=== PATIENT | female | born 1945 | race Caucasian/White ===

== ENCOUNTER → 2024-09-16 09:23 | Outpatient (REF) | payer OTHER, SELFPAY | LOC: HWWDC 09:23 | PROVIDERS: ATTENDING PHYSICIAN Internal Medicine Geriatric Medicine | DX: Z12.31 Encounter for screening mammogram for malignant neoplasm of breast (principal) | CPT/HCPCS: 77063; 77067 ==

== ENCOUNTER → 2024-10-14 10:29 | Outpatient (REF) | payer OTHER, SELFPAY | LOC: HWRAD 10:29 | PROVIDERS: ATTENDING PHYSICIAN Internal Medicine Endocrinology, Diabetes & Metabolism; FAMILY PHYSICIAN Internal Medicine Geriatric Medicine | DX: M81.0 Age-related osteoporosis without current pathological fracture (principal) | CPT/HCPCS: 77080 ==

== ENCOUNTER → 2025-04-12 11:54 | Outpatient (REF) | payer OTHER, SELFPAY | LOC: HWRAD 11:54 | PROVIDERS: ATTENDING PHYSICIAN Nurse Practitioner Adult Health | DX: M54.2 Cervicalgia (principal) | CPT/HCPCS: 72050 ==

== ENCOUNTER 2025-08-16 06:23 | Day surgery (SDC) | payer OTHER, SELFPAY | END 2025-08-16 09:10 | disposition home or self-care (01) | LOC: GI 06:23 | PROVIDERS: ATTENDING PHYSICIAN Internal Medicine; FAMILY PHYSICIAN Internal Medicine Geriatric Medicine | DX: K22.89 Other specified disease of esophagus (principal); K44.9 Diaphragmatic hernia without obstruction or gangrene; K31.7 Polyp of stomach and duodenum; K31.89 Other diseases of stomach and duodenum; Q39.9 Congenital malformation of esophagus, unspecified; R13.10 Dysphagia, unspecified | CPT/HCPCS: 43239; 88305; 88342 ==

== ENCOUNTER → 2025-08-31 11:48 | Outpatient (REF) | payer OTHER, SELFPAY | LOC: HWRAD 11:48 | PROVIDERS: ATTENDING PHYSICIAN Physician Assistant; FAMILY PHYSICIAN Internal Medicine Geriatric Medicine | DX: M54.50 Low back pain, unspecified (principal); M54.6 Pain in thoracic spine; M81.0 Age-related osteoporosis without current pathological fracture | CPT/HCPCS: 72070; 72100 ==

== ENCOUNTER → 2025-11-10 07:59 | Outpatient (REF) | payer OTHER, SELFPAY | LOC: HWWDC 07:59 | PROVIDERS: ATTENDING PHYSICIAN Internal Medicine Geriatric Medicine | DX: Z12.31 Encounter for screening mammogram for malignant neoplasm of breast (principal) | CPT/HCPCS: 77063; 77067 ==